=== PATIENT | male | born 1960 ===

== ENCOUNTER 2016-12-12 17:14 | Inpatient (IN) | payer MEDICAID ==
[2016-12-12 17:14] VITALS: BMI 30.7
--- NOTE | 2016-12-12 17:58 | ED PDOC ---
HPI:STROKE - Historian Historian: Patient (acute onset of blurred vision that resolves in minutes and difficulty with speech. h/o CVA in the past. no motor weakness that's new noted. ) NIHSS Stroke Scale - Date/Time Evaluation Performed When Was NIHSS Performed: Baseline - How Severe is the Stroke Level of Consciousness: 0=Alert LOC to Questions: 0=Both comments correct LOC to commands: 0=Obeys both correctly Best Gaze: 0=Normal Visual: 0=No visual loss Facial: 0=Normal Motor Arm - Left: 0=No drift Motor Arm - Right: 0=No drift Motor Leg - Left: 0=No drift Motor Leg - Right: 0=No drift Limb Ataxia: 0=Absent Sensory: 0=Normal Best Language: 1=Mild to moderate aphasia Dysarthia: 1=Mild to moderate slurring Extinction & Inattention (Neglect): 0=Normal, no object Score: 2 rTPA Inclusion/Exclusion - Refusal of Treatment Patient Refused Treatment: No - Inclusion Criteria for Altepase Patient is 18 years or Older: Yes The Clinical Diagnosis of Ischemic Stroke That is Causing a Potentially Disabling Neurological Deficit: No Time of Onset is Well Established to be Less Than 270 Minute Before Treatment Would Begin: No Risk/Benefit Discussed With Patient/Family Member Present: Yes - Exclusion Criteria for Altepase Uncontrolled Hypertension at Time of Treatment (Systolic BP above 185 or Diastolic BP above 110 mmHg): No Active Internal Bleeding: No Known Bleeding Diathesis Including but Not Limited to: Platelets Below 100,000/ mm,PTT Above 40 sec After Heparin Use, Current Use of Oral Anitcoagulant With INR Greater Than 1.7 or PT Greater Than 15 secs: No Evidence of an Intracranial Hemorrhage: No Evidence of Major Acute Infarct With Signs Greater Than 1/3 MCA Territory: No Suspicion of Subarachnoid Hemorrhage on Pretreatment Evaluation Even if CT Head Negative For Hemorrhage: No - Warning to TPA With Conditions Following Conditions Weighed Against Anticipated Benefit: Yes Condition: Stroke Serevity Too Mild Past Medical History Reviewed: Historical Data, Nursing Documentation, Vital Signs Vital Signs: Last Vital Signs Temp 98.1 F 12/12/16 17:20 Pulse 100 H 12/12/16 17:20 Resp 17 12/12/16 17:20 BP 140/88 12/12/16 17:20 Pulse Ox 100 12/12/16 17:20 - Medical History PMH: Atrial Fibrillation (pt had been on coumadin but recently switched to zarelta), Cardia Arrhythmia, CHF, HTN Denies: Chronic Kidney Disease - Surgical History Surgical History: Cholecystectomy Denies: Pacemaker - Family History Family History: States: No Known Family Hx - Living Arrangements Living Arrangements: With Family - Social History Current smoker - smoking cessation education provided: No - Home Medications Home Medications: Ambulatory Orders Medication Instructions Recorded Famotidine [Famotidine] 20 mg PO DAILY 10/25/13 Warfarin [Coumadin] 2.5 mg PO DAILY 03/13/14 Furosemide [Furosemide] 20 mg PO DAILY 08/02/14 Aspirin [Aspirin Chewable] 81 mg PO DAILY 09/03/16 Carvedilol [Coreg] 12.5 mg PO BID 09/03/16 Lisinopril [Zestril] 10 mg PO DAILY 09/03/16 Digoxin [Lanoxin] 0.125 mg PO 10/27/16 - Allergies Allergies/Adverse Reactions: Allergies Allergy/AdvReac Type Severity Reaction Status Date / Time No Known Allergies Allergy Verified 10/27/16 10:32 Review of Systems ROS Statement: Except As Marked, All Systems Reviewed And Found Negative Neurological: Positive for: Change in Speech, Other (transiently blurred vision) Physical Exam - Reviewed Nursing Documentation Reviewed: Yes Vital Signs Reviewed: Yes - Physical Exam Appears: Positive for: Well, Non-toxic, No Acute Distress Head Exam: Positive for: ATRAUMATIC, NORMAL INSPECTION, NORMOCEPHALIC Skin: Positive for: Normal Color, Warm, DRY Eye Exam: Positive for: EOMI, Normal appearance, PERRL ENT: Positive for: Normal ENT Inspection Neck: Positive for: Normal, Painless ROM Cardiovascular/Chest: Positive for: Regular Rate, Rhythm Respiratory: Positive for: CNT, Normal Breath Sounds Gastrointestinal/Abdominal: Positive for: Normal Exam, Bowel Sounds, Soft Back: Positive for: Normal Inspection Extremity: Positive for: Normal ROM Neurologic/Psych: Positive for: Alert, network architect manager II-XII, Oriented, Motor/Sensory Deficits, Mood/Affect, Cerebellar Tests, Aphasia (mild). Negative for: Facial Droop - ECG O2 Sat by Pulse Oximetry: 100 - Radiology X-Ray: Read By Radiologist - Critical Care Total Time (In Min): 30 Medical Decision Making Medical Decision Making: case d/w Dr. Morales. Admit for workup. Disposition - Clinical Impression Clinical Impression: Blurred vision, bilateral, Dysarthria, TIA (transient ischemic attack), Stroke - Patient ED Disposition Is Patient to be Admitted: Yes Doctor Will See Patient In The: Hospital Counseled Patient/Family Regarding: Diagnosis - Disposition Disposition: Transfer of Care Disposition Time: 18:09 Condition: GUARDED - Pt Status Changed To: Hospital Disposition Of: Inpatient - Admit Certification Admit to Inpatient:: After my assessment, the patient will require hospitalization for at least two midnights. This is because of the severity of symptoms shown, intensity of services needed, and/or the medical risk in this patient being treated as an outpatient. - POA Present On Arrival: None
--- NOTE | 2016-12-12 17:58 | CT ---
PROCEDURE: CT scan brain 12/12/2016 HISTORY: blurred vision, mild slurred speech COMPARISON: No prior study available comparison. TECHNIQUE: Axial computed tomography images were obtained through the head/brain without intravenous contrast. Radiation dose: Total exam DLP = 794.87 mGy-cm. This CT exam was performed using one or more of the following dose reduction techniques: Automated exposure control, adjustment of the mA and/or kV according to patient size, and/or use of iterative reconstruction technique. FINDINGS: HEMORRHAGE: No acute parenchymal, subarachnoid nor extra-axial hemorrhage. BRAIN: Vague area of low attenuation right anterior superior basal ganglia consistent with infarct in this location though age-indeterminate ; possibility of an acute infarct in this location not excluded. The possibility of an acute component infarct however underlying acute infarct cannot be completely excluded Chronic appearing infarct in the left posterior diaz radiata extending superiorly into left inferior centrum semiovale. This infarct appears chronic though not appreciated on prior exam. In addition, there is a chronic appearing infarct in the left frontal subcortical white matter that appears to extend into the anterior superior left basal ganglia which was partially visible on the prior study. . This may have represented an acute or subacute infarct on the prior exam Mild generalized volume loss VENTRICLES: No obstructive hydrocephalus CALVARIUM: No acute calvarial fractures PARANASAL SINUSES: Mild to moderate mucosal thickening within the ethmoid air complex extending superiorly into the frontal sinus. There is also minor mucosal thickening sphenoid sinus. MASTOID AIR CELLS: Unremarkable as visualized. No inflammatory changes. OTHER FINDINGS: None. IMPRESSION: No acute intracranial hemorrhage. Chronic on infarct left posterior coronal radiata extending superior to the left centrum semiovale. There is also chronic infarct in the left left frontal subcortical white matter which was partially visible on the prior exam. This could have represented an acute or subacute infarct on that prior study. There is a 3rd small vague and elliptical shaped area low attenuation right anterior superior basal ganglia that most likely represents age-indeterminate infarct. Acute infarct in this location not excluded. Consider followup emergent MRI at patient is currently within a treatment window for the tPA therapy. . Note that these findings were discussed with Dr. Fox at approximately 5:50 p.m. with written down and read back verification. Mild generalized volume loss. Cyst See above discussion for additional findings and details.
[2016-12-12 18:04] LABS: BASO % 0.7 % (0.0-2.0); EOS # 0.5 K/uL (0.0-0.7); EOS % 6.5 % (0.0-4.0); HEMATOCRIT 50.7 % (35.0-51.0); LYMPH # 2.4 K/uL (1.0-4.3); LYMPH % 32.9 % (20.0-40.0); MEAN CELL VOLUME 92.7 fl (80.0-94.0); MEAN CORPUSCULAR HGB CONC 33.5 g/dL (33.0-37.0); MONO # 0.5 K/uL (0.0-0.8); MONO % 6.9 % (0.0-10.0); NRBC % 0.2 % (0.0-0.0); RED CELL DISTRIBUTION WIDTH 13.3 % (11.5-14.5); WHITE BLOOD COUNT 7.5 K/uL (4.8-10.8)
[2016-12-12 18:21] LABS: ALB/GLOB RATIO 1.3 (1.0-2.1); ALKALINE PHOSPHATASE 69 U/L (38-126); ALT/SGPT 53 U/L (21-72); AST/SGOT 34 U/L (17-59); BILIRUBIN,TOTAL 0.5 mg/dl (0.2-1.3); BLOOD UREA NITROGEN 15 mg/dl (9-20); CALCIUM 8.8 mg/dL (8.4-10.2); CARBON DIOXIDE 27 mmol/L (22-30); CHLORIDE 105 mmol/L (98-107); CHOLESTEROL 109 mg/dL (0-199); GFR AFRICAN-AMERICAN > 60; GLUCOSE,RANDOM 98 mg/dL (75-110); POTASSIUM 3.9 MMOL/L (3.6-5.0); SODIUM 143 mmol/l (132-148); TOTAL PROTEIN 7.8 G/DL (6.3-8.2)
--- NOTE | 2016-12-12 18:28 | CP.PCM.HP ---
History of Present Illness - History of Present Illness History of Present Illness: CC:acute diplopia, mild dysarthria and aphasia x a few minutes 56 y/o M with Hx of CVA 2014, A fib, HTN, CHF, dilated cardiomyopathy ( EF 10-15 % on last ECHO 10/17, s/p AICD placement 2014), Polycythemia Vera presenting with diplopia and mild dysarthria and aphasia which started at 4 pm as per patient, lasted for a few minutes and resolved on its own. Associated with some dizziness. No chest pain, sob, cough, focal weakness or numbness, no LOC, no incontinence. PMH: Polycythemia Vera, CVA 07/17, A fib,HTN, CHF, dilated cardiomyopathy ( EF 10-15% on last ECHO 10/17, s/p AICD placement 2014) PSH: AICD 2014, cardiac cath 2013, cholecystectomy Allergies: NKDA Meds: per ECW Taking Aspir-81 81 MG Tablet Delayed Release Taking Atorvastatin Calcium 40 MG Tablet Taking Digoxin 125 MCG Tablet Continue Lisinopril 10 MG Tablet Continue Carvedilol 12.5 MG Tablet Continue Furosemide 20 MG Tablet Continue Warfarin Sodium 2.5 MG Tablet PMD: Dr Tse Cardio: Dr Delgadillo Heme/Onc: Dr Silverman ED course: NIHSS score 2 code stroke neuro consulted ct head w/o contrast: no acute hemorrhage cbc,cmp, lipids, coags, troponin x1 EKG, CXR Present on Admission - Present on Admission Any Indicators Present on Admission: No Review of Systems - Review of Systems Review of Systems: see hpi Past Patient History - Infectious Disease Hx of Infectious Diseases: None - Past Social History Smoking Status: Never Smoked - CARDIAC Hx Atrial Fibrillation: Yes (pt had been on coumadin but recently switched to zarelta) Hx Cardia Arrhythmia: Yes Hx Congestive Heart Failure: Yes Hx Hypertension: Yes Hx Pacemaker: No - NEUROLOGICAL HX Cerebrovascular Accident: Yes (no residual weakness) Hx Paralysis: No - RENAL Hx Chronic Kidney Disease: No - ENDOCRINE/METABOLIC Hx Endocrine Disorders: No - HEMATOLOGICAL/ONCOLOGICAL Hx Blood Transfusions: No Hx Blood Transfusion Reaction: No - INTEGUMENTARY Hx Dermatological Problems: No - MUSCULOSKELETAL/RHEUMATOLOGICAL Hx Musculoskeletal Disorders: No - GASTROINTESTINAL Hx Gastrointestinal Disorders: No - GENITOURINARY/GYNECOLOGICAL Hx Genitourinary Disorders: No - PSYCHIATRIC Hx Psychophysiologic Disorder: No - SURGICAL HISTORY Hx Cholecystectomy: Yes - ANESTHESIA Hx Anesthesia Reactions: No Hx Malignant Hyperthermia: No Meds Allergies/Adverse Reactions: Allergies Allergy/AdvReac Type Severity Reaction Status Date / Time No Known Allergies Allergy Verified 10/27/16 10:32 Physical Exam - Constitutional Appears: Non-toxic, No Acute Distress - Head Exam Head Exam: ATRAUMATIC - Eye Exam Eye Exam: EOMI Pupil Exam: PERRL - ENT Exam ENT Exam: Mucous Membranes Moist - Neck Exam Neck exam: Positive for: Full Rom. Negative for: Tenderness - Respiratory Exam Respiratory Exam: Clear to Auscultation Bilateral - Cardiovascular Exam Cardiovascular Exam: +S1, +S2 - GI/Abdominal Exam GI & Abdominal Exam: Normal Bowel Sounds, Soft. absent: Tenderness - Extremities Exam Extremities exam: Positive for: pedal pulses present. Negative for: calf tenderness, pedal edema - Neurological Exam Neurological exam: Alert, CN II-XII Intact, Oriented x3 - Expanded Neurological Exam Expanded Patient oriented to: person, place, time Cranial nerves: EOM's Intact: Normal, Facial Sensation: Normal, Nystagmus: Normal, Tongue Deviation: Normal Cerebellar Function: Finger to Nose: Normal, Romberg: Normal Neuro motor strength exam: Left Upper Extremity: 5, Right Upper Extremity: 5, Left Lower Extremity: 5, Right Lower Extremity: 5 - Psychiatric Exam Psychiatric exam: Normal Affect, Normal Mood Results - Vital Signs Recent Vital Signs: Last Vital Signs Temp 98.1 F 12/12/16 17:20 Pulse 100 H 12/12/16 17:20 Resp 17 12/12/16 17:20 BP 140/88 12/12/16 17:20 Pulse Ox 100 12/12/16 18:09 - Labs Result Diagrams: 12/12/16 17:50 12/12/16 17:50 Labs: Laboratory Results - last 24 hr 12/12/16 12/12/16 17:50 17:50 WBC 7.5 RBC 5.47 Hgb 17.0 Hct 50.7 MCV 92.7 MCH 31.0 MCHC 33.5 RDW 13.3 Plt Count 161 MPV 10.0 Neut % (Auto) 53.0 Lymph % (Auto) 32.9 Tyler % (Auto) 6.9 Eos % (Auto) 6.5 H Baso % (Auto) 0.7 Neut # 4.0 Lymph # 2.4 Tyler # 0.5 Eos # 0.5 Baso # 0.0 Sodium 143 Potassium 3.9 Chloride 105 Carbon Dioxide 27 Anion Gap 14 BUN 15 Creatinine 0.8 Est GFR ( Amer) > 60 Est GFR (Non-Af Amer) > 60 Random Glucose 98 Calcium 8.8 Total Bilirubin 0.5 AST 34 ALT 53 Alkaline Phosphatase 69 Total Protein 7.8 Albumin 4.4 Globulin 3.4 Albumin/Globulin Ratio 1.3 Triglycerides 240 H D Cholesterol 109 HDL Cholesterol 35 Assessment & Plan - Assessment and Plan (Free Text) Plan: 56 y/o M with Hx of CVA 2014, A fib, HTN, CHF, dilated cardiomyopathy ( EF 10-15 % on last ECHO 10/17, s/p AICD placement 2014), Polycythemia Vera presenting with diplopia and mild dysarthria and aphasia which started at 4 pm as per patient, lasted for a few minutes and resolved on its own. Diplopia w/ mild dysarthia resolved upon coming to the ED, poss 2/2 TIA ED course: NIHSS score 2 code stroke neuro consulted: recommend MRA, MRI but patient has AICD placed ct head w/o contrast: no acute hemorrhage swallow screen passed cbc,cmp, lipids, coags, troponin x1 EKG, CXR admit to telemetry neurochecks Q4 cardiac monitoring BP controlled: c/w lisinopril c/w lipitor 40 mg daily continue with home med warfarin since no acute hemorrhage on CT labs in AM await neuro recommendations since we cannot perform MRI/MRA due to AICD PT/OT eval and treat Afib c/w warfarin 2.5mg DCM AICD placed EF 10-15% with severe global hypokinesia of ventricle on last ECHO 10/17 c/w lasix daily, BENITA, BB Polycythemia Vera Hgb [address] Silverman as outpatient, no medical intervention for now as per patient PPx DVT - anticoagulated with warfarin for a fib Diet HH
--- NOTE | 2016-12-12 18:28 | RAD ---
HISTORY: code stroke COMPARISON: Comparison chest 08/02/2014 FINDINGS: LUNGS: No active pulmonary disease. PLEURA: No significant pleural effusion identified, no pneumothorax apparent. CARDIOVASCULAR: Cardiomegaly. Interval placement bipolar pacemaker/defibrillator. OSSEOUS STRUCTURES: No significant abnormalities. VISUALIZED UPPER ABDOMEN: Normal. OTHER FINDINGS: None. IMPRESSION: No acute consolidation. Cardiomegaly. Interval placement bipolar pacemaker/defibrillator.
[2016-12-12 18:52] LABS: PARTIAL THROMBOPLASTIN TIME 36.4 SECONDS (23.3-32.5)
[2016-12-13 07:58] LABS: HEMATOCRIT 50.5 % (35.0-51.0); MEAN CELL VOLUME 93.7 fl (80.0-94.0); MEAN CORPUSCULAR HEMOGLOBIN 30.9 pg (27.0-31.0); RED CELL DISTRIBUTION WIDTH 13.6 % (11.5-14.5); WHITE BLOOD COUNT 7.3 K/uL (4.8-10.8)
[2016-12-13 08:26] LABS: ALB/GLOB RATIO 1.2 (1.0-2.1); ALKALINE PHOSPHATASE 68 U/L (38-126); ALT/SGPT 48 U/L (21-72); AST/SGOT 49 U/L (17-59); BILIRUBIN,TOTAL 0.8 mg/dl (0.2-1.3); BLOOD UREA NITROGEN 17 mg/dl (9-20); CALCIUM 8.8 mg/dL (8.4-10.2); CARBON DIOXIDE 28 mmol/L (22-30); CHLORIDE 106 mmol/L (98-107); GFR AFRICAN-AMERICAN > 60; GLUCOSE,RANDOM 103 mg/dL (75-110); POTASSIUM 4.8 MMOL/L (3.6-5.0); SODIUM 142 mmol/l (132-148)
[2016-12-13] MEDS: Digoxin 125 mcg (0.125 mg) Tab PO SCH (08:49)
[2016-12-13 08:50] VITALS: PULSE 71
--- NOTE | 2016-12-13 10:30 | CP.PCM.CON ---
History of Present Illness - History of Present Illness History of Present Illness: Full Note Dictated. ?? TIA/?? fresh cerebral embolism Congestive cardiomyopathy Chr A Fib S/P AICD Implant Therapeutically anticoagulated Stable from cardiac point of view. Past Patient History - Infectious Disease Hx of Infectious Diseases: None - Past Medical History & Family History Past Medical History?: Yes - Past Social History Smoking Status: Never Smoked - CARDIAC Hx Cardiac Disorders: Yes Hx Atrial Fibrillation: Yes Hx Cardia Arrhythmia: Yes Hx Congestive Heart Failure: Yes Hx Hypertension: Yes Hx Pacemaker: Yes Other/Comment: Dilated cardiomyopathy - PULMONARY Hx Respiratory Disorders: No - NEUROLOGICAL Hx Neurological Disorder: Yes HX Cerebrovascular Accident: Yes (no residual weakness) - HEENT Hx HEENT Problems: No - RENAL Hx Chronic Kidney Disease: No - ENDOCRINE/METABOLIC Hx Endocrine Disorders: No - HEMATOLOGICAL/ONCOLOGICAL Hx Blood Disorders: Yes Other/Comment: Polycythemia - INTEGUMENTARY Hx Dermatological Problems: No - MUSCULOSKELETAL/RHEUMATOLOGICAL Hx Musculoskeletal Disorders: No Hx Falls: No - GASTROINTESTINAL Hx Gastrointestinal Disorders: No - GENITOURINARY/GYNECOLOGICAL Hx Genitourinary Disorders: No - PSYCHIATRIC Hx Psychophysiologic Disorder: No Hx Substance Use: No - SURGICAL HISTORY Hx Surgeries: Yes Hx Cholecystectomy: Yes Other/Comment: Pacemaker Insertion - ANESTHESIA Hx Anesthesia: Yes Hx Anesthesia Reactions: No Hx Malignant Hyperthermia: No Meds Allergies/Adverse Reactions: Allergies Allergy/AdvReac Type Severity Reaction Status Date / Time No Known Allergies Allergy Verified 10/27/16 10:32 - Medications Medications: Current Medications Aspirin (Aspirin Chewable) 81 mg PO DAILY [facility] Last Admin: 12/13/16 08:49 Dose: 81 mg Atorvastatin Calcium (Lipitor) 40 mg PO DAILY [facility] Last Admin: 12/13/16 08:48 Dose: 40 mg Carvedilol (Coreg) 12.5 mg PO BID [facility] Last Admin: 12/13/16 08:50 Dose: 12.5 mg Digoxin (Lanoxin) 0.125 mg PO DAILY [facility] Last Admin: 12/13/16 08:49 Dose: 0.125 mg Furosemide (Lasix) 10 mg PO DAILY [facility] Last Admin: 12/13/16 08:49 Dose: 10 mg Lisinopril (Zestril) 10 mg PO DAILY [facility] Last Admin: 12/13/16 08:48 Dose: 10 mg Ondansetron HCl (Zofran Inj) 4 mg IVP Q6 PRN PRN Reason: Nausea/Vomiting Results - Vital Signs Recent Vital Signs: Last Vital Signs Temp 97.4 F L 12/13/16 08:23 Pulse 71 12/13/16 08:50 Resp 20 12/13/16 08:23 BP 131/87 12/13/16 08:50 Pulse Ox 99 12/13/16 08:23 - Labs Result Diagrams: 12/13/16 06:00 12/13/16 06:00 Labs: Laboratory Results - last 24 hr 12/13/16 12/13/16 06:00 06:00 WBC 7.3 RBC 5.39 Hgb 16.7 Hct 50.5 MCV 93.7 MCH 30.9 MCHC 33.0 RDW 13.6 Plt Count 152 Sodium 142 Potassium 4.8 Chloride 106 Carbon Dioxide 28 Anion Gap 13 BUN 17 Creatinine 0.9 Est GFR ( Amer) > 60 Est GFR (Non-Af Amer) > 60 Random Glucose 103 Calcium 8.8 Total Bilirubin 0.8 AST 49 ALT 48 Alkaline Phosphatase 68 Total Protein 7.0 Albumin 3.8 Globulin 3.2 Albumin/Globulin Ratio 1.2
--- NOTE | 2016-12-13 11:34 | CARD ---
APPROVED REPORT EKG Measurement Heart [id number] <Conclusion> Ventricular-paced rhythm Abnormal ECG
--- NOTE | 2016-12-13 11:38 | CP.PCM.PN ---
Subjective - Date & Time of Evaluation Date of Evaluation: 12/13/16 Time of Evaluation: 08:45 - Subjective Subjective: Pt is being following up for Code stroke. No overnight event: afebrile Pt is walking around in his room, NAD, normal gait. Pt states his symptoms of gait imbalance, dysarthria, and aphasia has resolved. Pt reports his baseline neurological freitas. Denies new focal neurological deficits, dropping of face, extremity numbness/tingling. Denies fever, nausea, chills, sob, palpitation, headache. Objective - Vital Signs/Intake and Output Vital Signs (last 24 hours): Temp Pulse Resp BP Pulse Ox 97.4 F L 71 20 131/87 99 12/13/16 09:00 12/13/16 09:00 12/13/16 09:00 12/13/16 09:00 12/13/16 09:00 - Medications Medications: Current Medications Aspirin (Aspirin Chewable) 81 mg PO DAILY [facility] Last Admin: 12/13/16 08:49 Dose: 81 mg Atorvastatin Calcium (Lipitor) 40 mg PO DAILY [facility] Last Admin: 12/13/16 08:48 Dose: 40 mg Carvedilol (Coreg) 12.5 mg PO BID [facility] Last Admin: 12/13/16 08:50 Dose: 12.5 mg Digoxin (Lanoxin) 0.125 mg PO DAILY [facility] Last Admin: 12/13/16 08:49 Dose: 0.125 mg Furosemide (Lasix) 10 mg PO DAILY [facility] Last Admin: 12/13/16 08:49 Dose: 10 mg Lisinopril (Zestril) 10 mg PO DAILY [facility] Last Admin: 12/13/16 08:48 Dose: 10 mg Ondansetron HCl (Zofran Inj) 4 mg IVP Q6 PRN PRN Reason: Nausea/Vomiting - Labs Labs: 12/13/16 06:00 12/13/16 06:00 PT 24.6 SECONDS (9.6-11.2) H 12/12/16 17:50 INR 2.37 (0.92-1.08) H 12/12/16 17:50 APTT 36.4 SECONDS (23.3-32.5) H 12/12/16 17:50 - Constitutional Appears: Non-toxic, No Acute Distress - Head Exam Head Exam: ATRAUMATIC - Eye Exam Eye Exam: EOMI, Normal appearance - ENT Exam ENT Exam: Mucous Membranes Moist - Neck Exam Neck Exam: Full ROM - Respiratory Exam Respiratory Exam: Clear to Ausculation Bilateral - Cardiovascular Exam Cardiovascular Exam: REGULAR RHYTHM, +S1, +S2. absent: Murmur - GI/Abdominal Exam GI & Abdominal Exam: Soft, Normal Bowel Sounds. absent: Distended, Tenderness - Extremities Exam Extremities Exam: Full ROM, Normal Capillary Refill. absent: Calf Tenderness, Pedal Edema, Tenderness - Back Exam Back Exam: Full ROM, NORMAL INSPECTION. absent: CVA tenderness (L), CVA tenderness (R) - Neurological Exam Neurological Exam: Alert, Awake, CN II-XII Intact, Normal Gait, Oriented x3 Neuro motor strength exam: Left Upper Extremity: 4, Right Upper Extremity: 4 - Psychiatric Exam Psychiatric exam: Anxious, Normal Affect, Normal Mood - Skin Skin Exam: Normal Color, Warm Assessment and Plan - Assessment and Plan (Free Text) Assessment: 56 y/o M with Hx of CVA 2014, A fib, HTN, CHF, dilated cardiomyopathy ( EF 10-15 % on last ECHO 10/17, s/p AICD placement 2014), Polycythemia Vera presenting with diplopia and mild dysarthria and aphasia which started at 4 pm as per patient, lasted for a few minutes and resolved on its own admitted for Code Stroke. Diplopia w/ mild dysarthia -resolved, most likely TIA -Neurology consult appreciated, Dr. Morales due to AICD MRA, MRI held, recommend CTa of head and neck -Code stroke -NIHSS score 2, swallow screen passed -ct head w/o contrast: no acute hemorrhage - cxr: no acute disease -continue with aspirin, lipitor, warfarin 2.5mg -awaiting PT/OT eval and treat HTN: BP controlled c/w lisinopril c/w lipitor 40 mg daily Afib -ACID intact -ekg in ED: ventricular pace -c/w warfarin 2.5mg -f/u repeat INR CHF EF 10-15% with severe global hypokinesia of ventricle on last ECHO 10/17 c/w lasix daily, BENITA, BB Polycythemia Vera -awaiting heme/onc consult, Dr. Silverman -history of phlebotomy -H:H 17:50 PPx DVT - anticoagulated with warfarin for a fib Diet HH
--- NOTE | 2016-12-13 14:19 | CON ---
DATE: 12/13/2016 He is hospitalized under the resident's care in room 417, bed 1. HISTORY OF PRESENT ILLNESS: This 56-year-old man is well known to me over the last couple of years. He has congestive cardiomyopathy with chronic atrial fibrillation for which he takes carvedilol, lis inopril, and a diuretic. He has been orally anticoagulated using warfarin and gets his INR checked r egularly. Because of a severely depressed left ventricular systolic function, he has had an AICD imp lanted more than 2 years back and gets regular checkups by his account resolution specialist. Following initia tion of heart failure treatment, the patient has had exceedingly improved effort tolerance and is abl e to walk freely 10-12 blocks without any difficulty and can climb a flight of stairs and has not bee n hospitalized with heart failure symptoms. He came to the Emergency Room after experiencing a perio d of lightheadedness along with mild slurring of speech which lasted for a very short period of time and promptly disappeared. PHYSICAL EXAMINATION: GENERAL: Shows a middle-aged pleasant man, alert, awake, coherent. Able to express himself quite wel l. Has normal speech. Is able to get in and out of bed unassisted. VITAL SIGNS: Afebrile, heart rate of 68 beats per minute and regular, his blood pressure was 120/80 mmHg. NECK: His jugular venous pressure was not elevated. EXTREMITIES: There was no edema of his lower extremities. The pedal pulses were well felt. There w ere no carotid bruits. HEART: The apex was in the 5th space. The first and second heart sounds were normal. There was no murmur, no gallop. LUNGS: No rales. ABDOMEN: Soft. Liver and spleen were not palpable. In the Emergency Room, his electrocardiogram showed evidence of atrial fibrillation with a VVI paced rhythm. LABORATORY DATA: Show a hemoglobin and hematocrit of 16.7 g and 50.5% respectively. His WBC count a nd platelet count were within normal limits. His BUN and creatinine were 15 and 0.8 mg percent. His troponin was within normal range and his INR was 2.3. IMPRESSION AND PLAN: At this time is transient ischemic episode in a patient with chronic atrial fib rillation, history of congestive cardiomyopathy, congestive heart failure, which is left ventricular systolic and chronic with status post automatic implantable cardioverter-defibrillator implant. The patient does have an elevated BUN and elevated hemoglobin and hematocrit and given his history of con gestive cardiac failure, would probably benefit by having a phlebotomy. He is stable from cardiovasc ular point of view. I have discussed his case with the residents. His present schedule of medication s is appropriate. Ad Delgadillo MD cc: 23 TT: 12/13/2016 14:18:55 Confirmation # [id number] Dictation # [id number] rn
--- NOTE | 2016-12-13 16:17 | CP.PCM.CON ---
History of Present Illness - History of Present Illness History of Present Illness: Mr. Dang is a 56-year-old man with a past medical history of left MCA region ischemic stroke in 2014, A fib, HTN, CHF, dilated cardiomyopathy (EF 10-15% on last ECHO 10/17, s/p AICD placement 2015), Polycythemia Vera, who presented to the ED after an episode of vertigo and visual changes that lasted for several minutes and resolved completely. He states that he has had an additional amount of stress at home recently and he has not been feeling well. Otherwise, he does not have any residual symptoms of visual changes and is not currently vertiginous. He has slight right side weakness from the previous stroke, but he states that he recovered about 95% of his function. He denied headache, nausea, slurred speech, word-finding difficulty, other weakness, sensory changes or difficulty with ambulation. He denied other associated symptoms. Review of Systems - Review of Systems All systems: reviewed and no additional remarkable complaints except Past Patient History - Infectious Disease Hx of Infectious Diseases: None - Past Medical History & Family History Past Medical History?: Yes - Past Social History Smoking Status: Never Smoked - CARDIAC Hx Cardiac Disorders: Yes Hx Atrial Fibrillation: Yes Hx Cardia Arrhythmia: Yes Hx Congestive Heart Failure: Yes Hx Hypertension: Yes Hx Pacemaker: Yes Other/Comment: Dilated cardiomyopathy - PULMONARY Hx Respiratory Disorders: No - NEUROLOGICAL Hx Neurological Disorder: Yes HX Cerebrovascular Accident: Yes (no residual weakness) - HEENT Hx HEENT Problems: No - RENAL Hx Chronic Kidney Disease: No - ENDOCRINE/METABOLIC Hx Endocrine Disorders: No - HEMATOLOGICAL/ONCOLOGICAL Hx Blood Disorders: Yes Other/Comment: Polycythemia - INTEGUMENTARY Hx Dermatological Problems: No - MUSCULOSKELETAL/RHEUMATOLOGICAL Hx Musculoskeletal Disorders: No Hx Falls: No - GASTROINTESTINAL Hx Gastrointestinal Disorders: No - GENITOURINARY/GYNECOLOGICAL Hx Genitourinary Disorders: No - PSYCHIATRIC Hx Psychophysiologic Disorder: No Hx Substance Use: No - SURGICAL HISTORY Hx Surgeries: Yes Hx Cholecystectomy: Yes Other/Comment: Pacemaker Insertion - ANESTHESIA Hx Anesthesia: Yes Hx Anesthesia Reactions: No Hx Malignant Hyperthermia: No Meds Allergies/Adverse Reactions: Allergies Allergy/AdvReac Type Severity Reaction Status Date / Time No Known Allergies Allergy Verified 10/27/16 10:32 - Medications Medications: Current Medications Aspirin (Aspirin Chewable) 81 mg PO DAILY [facility] Last Admin: 12/13/16 08:49 Dose: 81 mg Atorvastatin Calcium (Lipitor) 40 mg PO DAILY [facility] Last Admin: 12/13/16 08:48 Dose: 40 mg Carvedilol (Coreg) 12.5 mg PO BID [facility] Last Admin: 12/13/16 08:50 Dose: 12.5 mg Digoxin (Lanoxin) 0.125 mg PO DAILY [facility] Last Admin: 12/13/16 08:49 Dose: 0.125 mg Furosemide (Lasix) 10 mg PO DAILY [facility] Last Admin: 12/13/16 08:49 Dose: 10 mg Lisinopril (Zestril) 10 mg PO DAILY [facility] Last Admin: 12/13/16 08:48 Dose: 10 mg Ondansetron HCl (Zofran Inj) 4 mg IVP Q6 PRN PRN Reason: Nausea/Vomiting Physical Exam - Constitutional Appears: Well - Head Exam Head Exam: ATRAUMATIC, NORMAL INSPECTION, NORMOCEPHALIC - Eye Exam Eye Exam: EOMI, Normal appearance, PERRL Pupil Exam: NORMAL ACCOMODATION, PERRL - ENT Exam ENT Exam: Mucous Membranes Moist, Normal Exam - Neck Exam Neck exam: Positive for: Normal Inspection - Respiratory Exam Respiratory Exam: Clear to Auscultation Bilateral, NORMAL BREATHING PATTERN - Cardiovascular Exam Cardiovascular Exam: REGULAR RHYTHM, +S1, +S2 - GI/Abdominal Exam GI & Abdominal Exam: Normal Bowel Sounds, Soft. absent: Tenderness - Rectal Exam Rectal Exam: Deferred - Extremities Exam Extremities exam: Positive for: normal inspection - Back Exam Back exam: NORMAL INSPECTION - Neurological Exam Neurological exam: Alert, CN II-XII Intact, Normal Gait, Oriented x3, Reflexes Normal - Expanded Neurological Exam Expanded Cranial nerves: EOM's Intact: Normal, Facial Sensation: Normal, Nystagmus: Normal Cerebellar Function: Finger to Nose: Normal, Heel to Benites: Normal, Romberg: Normal Upper motor neuron: Babinski Sign: Normal Sensory exam: Lower Extremity 2 Point Discrimination: Normal, Lower Extremity Light Touch: Normal, Lower Extremity Pin Prick: Normal, Lower Extremity Temperature: Normal, Upper Extremity 2 Point Discrimination: Normal, Upper Extremity Light Touch: Normal, Upper Extremity Pin Prick: Normal, Upper Extremity Temperature: Normal Neuro motor strength exam: Left Upper Extremity: 5, Right Upper Extremity: 5, Left Lower Extremity: 5, Right Lower Extremity: 5 DTR: Achilles Tendon Left: 2+, Achilles Tendon Right: 2+, Bicep Left: 2+, Bicep Right: 2+, Brachioradialis Left: 2+, Brachioradialis Right: 2+, Patellar Left: 2 +, Patellar Right: 2+, Tricep Left: 2+, Tricep Right: 2+ - Psychiatric Exam Psychiatric exam: Normal Affect, Normal Mood - Skin Skin Exam: Dry, Intact, Normal Color, Warm Results - Vital Signs Recent Vital Signs: Last Vital Signs Temp 98.1 F 12/13/16 15:41 Pulse 71 12/13/16 15:41 Resp 20 12/13/16 15:41 BP 114/61 12/13/16 15:41 Pulse Ox 98 12/13/16 15:41 - Labs Result Diagrams: 12/13/16 06:00 12/13/16 06:00 Labs: Laboratory Results - last 24 hr 12/13/16 12/13/16 06:00 06:00 WBC 7.3 RBC 5.39 Hgb 16.7 Hct 50.5 MCV 93.7 MCH 30.9 MCHC 33.0 RDW 13.6 Plt Count 152 Sodium 142 Potassium 4.8 Chloride 106 Carbon Dioxide 28 Anion Gap 13 BUN 17 Creatinine 0.9 Est GFR ( Amer) > 60 Est GFR (Non-Af Amer) > 60 Random Glucose 103 Calcium 8.8 Total Bilirubin 0.8 AST 49 ALT 48 Alkaline Phosphatase 68 Total Protein 7.0 Albumin 3.8 Globulin 3.2 Albumin/Globulin Ratio 1.2 Assessment & Plan (1) TIA (transient ischemic attack) Assessment and Plan: The history and description of the symptoms may have been due to a posterior circulation TIA. The patient is not back to baseline. His AICD does not appear to be MRI compatible, so we will repeat the CT head and obtain a CTA of the head /neck to evaluate for vascular stenosis. An echocardiogram with bubble study is recommended to rule out a cardiac thrombus. Continue coumadin for an INR of 2-3, and continue aspirin 81 mg daily for secondary stroke prevention. The patient is already on lipitor and this will be continued. We discussed life- style modification and risk-factor management. He may need to be evaluated by PT/OT. Otherwise, if the results of the aforementioned tests are normal, then he may be discharged home on his current medications and may follow-up with outpatient neurology. Thank you very much for this consultation. Status: Acute Priority: High
--- NOTE | 2016-12-13 17:28 | CP.PCM.CON ---
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 The patient notes to increased stress for about 2 weeks which he thinks led to his vision showing the rooms moving up and down. He denies fevers and chills. He has no nausea and vomiting. He has no headache and notes his vision is back to normal. 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 Social history: Denies tobacco, alcohol, and illicit drug use. Allergies: NKA Review of systems: All remaining review of systems including HEENT, cardiovascular, respiratory, gastrointestinal, genitourinary, musculoskeletal, dermatologic, neurologic, and psychiatric are negative unless mentioned in the HPI. Past Patient History - Infectious Disease Hx of Infectious Diseases: None - Past Medical History & Family History Past Medical History?: Yes - Past Social History Smoking Status: Never Smoked - CARDIAC Hx Cardiac Disorders: Yes Hx Atrial Fibrillation: Yes Hx Cardia Arrhythmia: Yes Hx Congestive Heart Failure: Yes Hx Hypertension: Yes Hx Pacemaker: Yes Other/Comment: Dilated cardiomyopathy - PULMONARY Hx Respiratory Disorders: No - NEUROLOGICAL Hx Neurological Disorder: Yes HX Cerebrovascular Accident: Yes (no residual weakness) - HEENT Hx HEENT Problems: No - RENAL Hx Chronic Kidney Disease: No - ENDOCRINE/METABOLIC Hx Endocrine Disorders: No - HEMATOLOGICAL/ONCOLOGICAL Hx Blood Disorders: Yes Other/Comment: Polycythemia - INTEGUMENTARY Hx Dermatological Problems: No - MUSCULOSKELETAL/RHEUMATOLOGICAL Hx Musculoskeletal Disorders: No Hx Falls: No - GASTROINTESTINAL Hx Gastrointestinal Disorders: No - GENITOURINARY/GYNECOLOGICAL Hx Genitourinary Disorders: No - PSYCHIATRIC Hx Psychophysiologic Disorder: No Hx Substance Use: No - SURGICAL HISTORY Hx Surgeries: Yes Hx Cholecystectomy: Yes Other/Comment: Pacemaker Insertion - ANESTHESIA Hx Anesthesia: Yes Hx Anesthesia Reactions: No Hx Malignant Hyperthermia: No Meds Allergies/Adverse Reactions: Allergies Allergy/AdvReac Type Severity Reaction Status Date / Time No Known Allergies Allergy Verified 10/27/16 10:32 - Medications Medications: Current Medications Aspirin (Aspirin Chewable) 81 mg PO DAILY [facility] Last Admin: 12/13/16 08:49 Dose: 81 mg Atorvastatin Calcium (Lipitor) 40 mg PO DAILY [facility] Last Admin: 12/13/16 08:48 Dose: 40 mg Carvedilol (Coreg) 12.5 mg PO BID [facility] Last Admin: 12/13/16 16:21 Dose: 12.5 mg Digoxin (Lanoxin) 0.125 mg PO DAILY [facility] Last Admin: 12/13/16 08:49 Dose: 0.125 mg Furosemide (Lasix) 10 mg PO DAILY [facility] Last Admin: 12/13/16 08:49 Dose: 10 mg Lisinopril (Zestril) 10 mg PO DAILY [facility] Last Admin: 12/13/16 08:48 Dose: 10 mg Ondansetron HCl (Zofran Inj) 4 mg IVP Q6 PRN PRN Reason: Nausea/Vomiting Physical Exam - Head Exam Head Exam: ATRAUMATIC - Eye Exam Eye Exam: Normal appearance - ENT Exam ENT Exam: Mucous Membranes Dry - Respiratory Exam Respiratory Exam: NORMAL BREATHING PATTERN - Cardiovascular Exam Cardiovascular Exam: +S1, +S2 - GI/Abdominal Exam GI & Abdominal Exam: Normal Bowel Sounds - Extremities Exam Extremities exam: Positive for: normal inspection - Neurological Exam Neurological exam: Oriented x3 - Psychiatric Exam Psychiatric exam: Normal Affect, Normal Mood - Skin Skin Exam: Warm Results - Vital Signs Recent Vital Signs: Last Vital Signs Temp 98.1 F 12/13/16 15:41 Pulse 71 12/13/16 16:21 Resp 20 12/13/16 15:41 BP 114/61 12/13/16 16:21 Pulse Ox 98 12/13/16 15:41 - Labs Result Diagrams: 12/14/16 06:00 12/13/16 06:00 Labs: Laboratory Results - last 24 hr 12/13/16 12/13/16 06:00 06:00 WBC 7.3 RBC 5.39 Hgb 16.7 Hct 50.5 MCV 93.7 MCH 30.9 MCHC 33.0 RDW 13.6 Plt Count 152 Sodium 142 Potassium 4.8 Chloride 106 Carbon Dioxide 28 Anion Gap 13 BUN 17 Creatinine 0.9 Est GFR ( Amer) > 60 Est GFR (Non-Af Amer) > 60 Random Glucose 103 Calcium 8.8 Total Bilirubin 0.8 AST 49 ALT 48 Alkaline Phosphatase 68 Total Protein 7.0 Albumin 3.8 Globulin 3.2 Albumin/Globulin Ratio 1.2 Assessment & Plan (1) Secondary polycythemia Assessment and Plan: JAK2 negative repeat erythropoietin level outpatient phlebotomy Status: Acute (2) Coagulopathy Assessment and Plan: secondary to anticoagulation Thank you for this interesting consult. Status: Acute
[2016-12-14 08:29] LABS: MEAN CELL VOLUME 92.5 fl (80.0-94.0); MEAN CORPUSCULAR HGB CONC 33.6 g/dL (33.0-37.0); RED CELL DISTRIBUTION WIDTH 13.2 % (11.5-14.5); WHITE BLOOD COUNT 7.4 K/uL (4.8-10.8)
[2016-12-14 08:39] LABS: PARTIAL THROMBOPLASTIN TIME 32.4 SECONDS (23.3-32.5)
[2016-12-14] MEDS: Digoxin 125 mcg (0.125 mg) Tab PO SCH (09:20)
--- NOTE | 2016-12-14 10:01 | CP.PCM.PN ---
Subjective - Date & Time of Evaluation Date of Evaluation: 12/14/16 Time of Evaluation: 09:30 - Subjective Subjective: Pt is being following up for Code stroke. No overnight event: afebrile Pt is laying up in bed, NAD. Pt continue to states his symptoms of gait imbalance, dysarthria, and aphasia has resolved. Pt reports he is at his baseline neurological freitas. Denies new focal neurological deficits, dropping of face, extremity numbness/tingling. Denies fever, nausea, chills, sob, palpitation, headache. Objective - Vital Signs/Intake and Output Vital Signs (last 24 hours): Temp Pulse Resp BP Pulse Ox 97.7 F 71 19 130/83 99 12/14/16 04:50 12/14/16 09:21 12/14/16 04:50 12/14/16 09:21 12/14/16 04:50 - Medications Medications: Current Medications Aspirin (Aspirin Chewable) 81 mg PO DAILY [facility] Last Admin: 12/14/16 09:19 Dose: 81 mg Atorvastatin Calcium (Lipitor) 40 mg PO DAILY [facility] Last Admin: 12/14/16 09:21 Dose: 40 mg Carvedilol (Coreg) 12.5 mg PO BID [facility] Last Admin: 12/14/16 09:19 Dose: 12.5 mg Digoxin (Lanoxin) 0.125 mg PO DAILY [facility] Last Admin: 12/14/16 09:20 Dose: 0.125 mg Furosemide (Lasix) 10 mg PO DAILY [facility] Last Admin: 12/14/16 09:20 Dose: 10 mg Lisinopril (Zestril) 10 mg PO DAILY [facility] Last Admin: 12/14/16 09:21 Dose: 10 mg Ondansetron HCl (Zofran Inj) 4 mg IVP Q6 PRN PRN Reason: Nausea/Vomiting - Labs Labs: 12/14/16 06:00 12/13/16 06:00 PT 19.7 SECONDS (9.6-11.2) H 12/14/16 06:00 INR 1.89 (0.92-1.08) H 12/14/16 06:00 APTT 32.4 SECONDS (23.3-32.5) 12/14/16 06:00 - Additional Findings Additional findings: - Constitutional Appears: Non-toxic, No Acute Distress - Head Exam Head Exam: ATRAUMATIC - Eye Exam Eye Exam: EOMI, Normal appearance - ENT Exam ENT Exam: Mucous Membranes Moist - Neck Exam Neck Exam: Full ROM - Respiratory Exam Respiratory Exam: Clear to Ausculation Bilateral - Cardiovascular Exam Cardiovascular Exam: REGULAR RHYTHM, +S1, +S2. absent: Murmur - GI/Abdominal Exam GI & Abdominal Exam: Soft, Normal Bowel Sounds. absent: Distended, Tenderness - Extremities Exam Extremities Exam: Full ROM, Normal Capillary Refill. absent: Calf Tenderness, Pedal Edema, Tenderness - Back Exam Back Exam: Full ROM, NORMAL INSPECTION. absent: CVA tenderness (L), CVA tenderness (R) - Neurological Exam Neurological Exam: Alert, Awake, CN II-XII Intact, Normal Gait, Oriented x3 Neuro motor strength exam: Left Upper Extremity: 4, Right Upper Extremity: 4 - Psychiatric Exam Psychiatric exam: Anxious, Normal Affect, Normal Mood - Skin Skin Exam: Normal Color, Warm Assessment and Plan - Assessment and Plan (Free Text) Assessment: 56 y/o M with Hx of CVA 2014, A fib, HTN, CHF, dilated cardiomyopathy ( EF 10-15 % on last ECHO 10/17, s/p AICD placement 2014), Polycythemia Vera presenting with diplopia and mild dysarthria and aphasia which started at 4 pm as per patient, lasted for a few minutes and resolved on its own admitted for Code Stroke. Diplopia w/ mild dysarthia -resolved, most likely TIA -Neurology consult appreciated, Dr. Morales due to AICD MRA, MRI held, recommend CTa of head and neck pending repeat ct head, cta head and neck, if unremarkable stable to d/c and f/u outpt -Code stroke -NIHSS score 2, swallow screen passed -ct head w/o contrast: no acute hemorrhage -cxr: no acute disease -continue with aspirin, lipitor, warfarin 2.5mg -awaiting PT/OT eval, ct a head and neck, and repeat ct head HTN: BP controlled c/w lisinopril c/w lipitor 40 mg daily Afib -ACID intact -ekg in ED: ventricular pace -c/w warfarin 2.5mg -f/u repeat INR CHF EF 10-15% with severe global hypokinesia of ventricle on last ECHO 10/17 c/w lasix daily, BENITA, BB Polycythemia Vera -awaiting heme/onc consult, Dr. Silverman -history of phlebotomy -H:H 17:50 PPx DVT - anticoagulated with warfarin for a fib Diet HH
[2016-12-14] MEDS ORDERED: Sodium Chloride 0.9% 100 ML ONE (12:00)
[2016-12-14] MEDS ORDERED: Iodixanol 320 MG/ML 100 ML BOTTLE IV ONE (12:00)
--- NOTE | 2016-12-14 12:55 | CT ---
PROCEDURE: CT HEAD WITHOUT CONTRAST. HISTORY: code stroke COMPARISON: None available. TECHNIQUE: Axial computed tomography images were obtained through the head/brain without intravenous contrast. Radiation dose: Total exam DLP = 867 mGy-cm. This CT exam was performed using one or more of the following dose reduction techniques: Automated exposure control, adjustment of the mA and/or kV according to patient size, and/or use of iterative reconstruction technique. FINDINGS: HEMORRHAGE: No intracranial hemorrhage. BRAIN: No mass effect or edema. Mild chronic white matter ischemic disease. VENTRICLES: Unremarkable. No hydrocephalus. CALVARIUM: Unremarkable. PARANASAL SINUSES: Unremarkable as visualized. No significant inflammatory changes. MASTOID AIR CELLS: Unremarkable as visualized. No inflammatory changes. OTHER FINDINGS: None. IMPRESSION: Mild chronic white matter ischemic disease.
[2016-12-15] MEDS: Digoxin 125 mcg (0.125 mg) Tab PO SCH (08:39)
[2016-12-15 12:21] VITALS: PULSE 70
--- NOTE | 2016-12-15 13:36 | CT ---
PROCEDURE: CT Angiography of the neck with contrast HISTORY: code stroke, neurology recommendation COMPARISON: None available. TECHNIQUE: Contiguous axial images of the neck were obtained from the level of the skull-base to the superior mediastinum in the arteriographic phase of enhancement. Coronal and sagittal reformats or also generated. IV contrast dose: 100 cc of Visipaque Radiation Dose - DLP: 2303 mGy-cm This CT exam was performed using one or more of the following dose reduction techniques: Automated exposure control, adjustment of the mA and/or kV according to patient size, and/or use of iterative reconstruction technique. FINDINGS: RIGHT CAROTID ARTERIES: Common Carotid Artery: Normal. Carotid Bifurcation: Normal. Internal Carotid Artery:Normal. External Carotid Artery (proximal branches): Normal. LEFT CAROTID ARTERIES: Common Carotid Artery: Normal. Carotid Bifurcation: Normal. Internal Carotid Artery:Normal. External Carotid Artery (proximal branches): Normal. VERTEBRAL ARTERIES: Right Vertebral Artery: Normal. Left Vertebral Artery: Normal. OTHER FINDINGS: None. IMPRESSION: Normal CT Angiography of the neck. PROCEDURE: CT Angiography of the Brain. HISTORY: code stroke, neurology recommendation COMPARISON: None available. TECHNIQUE: CT angiography of the intracranial arteries was performed. Coronal and sagittal maximum intensity projection reformated images were generated. This CT exam was performed using one or more of the following dose reduction techniques: Automated exposure control, adjustment of the mA and/or kV according to patient size, and/or use of iterative reconstruction technique. FINDINGS: INTERNAL CEREBRAL ARTERIES: Unremarkable. The skull base, petrous, cavernous and supraclinoid segments are bilaterally widely patient. ANTERIOR CEREBRAL ARTERIES: Unremarkable. A1 and A2 segments are widely patent. Smaller distal branches unremarkable, as visualized. MIDDLE CEREBRAL ARTERIES: Unremarkable. M1 and M2 segments are widely patent. Perisylvian branches grossly symmetric. POSTERIOR CIRCULATION: Basilar Artery: Unremarkable. Distal Vertebral Arteries: Unremarkable. Posterior Cerebral Arteries: Unremarkable. Posterior Inferior Cerebellar Arteries: Unremarkable. ANEURYSM/ VASCULAR MALFORMATIONS: None. OTHER FINDINGS: The report concurs with the preliminary [facility] report IMPRESSION: Unremarkable CT Angiography of the Brain.
--- NOTE | 2016-12-15 15:15 | CP.PCM.DIS ---
Provider - Provider Date of Admission: 12/12/16 18:09 Attending physician: Tanya Nunez MD Primary care physician: Dr Kaden Tse Consults: Cardiology Dr Romano Neurology Dr Morales Time Spent in preparation of Discharge (in minutes): 30 Diagnosis - Discharge Diagnosis (1) TIA (transient ischemic attack) Status: Resolved Priority: High Comment: CT head/CT angiogram no acute changes. Patient asymptomatic (2) Congestive heart failure (CHF) Status: Chronic Comment: Stable. Evaluated by Cardiology. Cont home meds. F/U as outpatient Hospital Course - Lab Results Lab Results: Most Recent Lab Values WBC 7.4 K/uL (4.8-10.8) 12/14/16 06:00 RBC 5.51 Mil/uL (4.40-5.90) 12/14/16 06:00 Hgb 17.1 g/dL (12.0-18.0) 12/14/16 06:00 Hct 51.0 % (35.0-51.0) 12/14/16 06:00 MCV 92.5 fl (80.0-94.0) 12/14/16 06:00 MCH 31.0 pg (27.0-31.0) 12/14/16 06:00 MCHC 33.6 g/dL (33.0-37.0) 12/14/16 06:00 RDW 13.2 % (11.5-14.5) 12/14/16 06:00 Plt Count 157 K/uL (130-400) 12/14/16 06:00 MPV 10.0 fl (7.2-11.7) 12/12/16 17:50 Neut % (Auto) 53.0 % (50.0-75.0) 12/12/16 17:50 Lymph % (Auto) 32.9 % (20.0-40.0) 12/12/16 17:50 [place] % (Auto) 6.9 % (0.0-10.0) 12/12/16 17:50 Eos % (Auto) 6.5 % (0.0-4.0) H 12/12/16 17:50 Baso % (Auto) 0.7 % (0.0-2.0) 12/12/16 17:50 Neut # 4.0 K/uL (1.8-7.0) 12/12/16 17:50 Lymph # 2.4 K/uL (1.0-4.3) 12/12/16 17:50 [place] # 0.5 K/uL (0.0-0.8) 12/12/16 17:50 Eos # 0.5 K/uL (0.0-0.7) 12/12/16 17:50 Baso # 0.0 K/uL (0.0-0.2) 12/12/16 17:50 PT 23.1 SECONDS (9.6-11.2) H 12/15/16 05:40 INR 2.22 (0.92-1.08) H 12/15/16 05:40 APTT 32.4 SECONDS (23.3-32.5) 12/14/16 06:00 Sodium 142 mmol/l (132-148) 12/13/16 06:00 Potassium 4.8 MMOL/L (3.6-5.0) 12/13/16 06:00 Chloride 106 mmol/L (98-107) 12/13/16 06:00 Carbon Dioxide 28 mmol/L (22-30) 12/13/16 06:00 Anion Gap 13 (10-20) 12/13/16 06:00 BUN 17 mg/dl (9-20) 12/13/16 06:00 Creatinine 0.9 mg/dL (0.8-1.5) 12/13/16 06:00 Est GFR ( Amer) > 60 12/13/16 06:00 Est GFR (Non-Af Amer) > 60 12/13/16 06:00 POC Glucose (mg/dL) 107 mg/dL (65-110) 12/12/16 17:23 Random Glucose 103 mg/dL (75-110) 12/13/16 06:00 Calcium 8.8 mg/dL (8.4-10.2) 12/13/16 06:00 Total Bilirubin 0.8 mg/dl (0.2-1.3) 12/13/16 06:00 AST 49 U/L (17-59) 12/13/16 06:00 ALT 48 U/L (21-72) 12/13/16 06:00 Alkaline Phosphatase 68 U/L (38-126) 12/13/16 06:00 Troponin I 0.0160 ng/mL (0.00-0.120) 12/12/16 17:50 Total Protein 7.0 G/DL (6.3-8.2) 12/13/16 06:00 Albumin 3.8 g/dL (3.5-5.0) 12/13/16 06:00 Globulin 3.2 gm/dL (2.2-3.9) 12/13/16 06:00 Albumin/Globulin Ratio 1.2 (1.0-2.1) 12/13/16 06:00 Triglycerides 240 mg/DL (0-149) H D 12/12/16 17:50 Cholesterol 109 mg/dL (0-199) 12/12/16 17:50 LDL Cholesterol Direct 43 mg/dL (0-129) 12/12/16 17:50 HDL Cholesterol 35 MG/DL (30-70) 12/12/16 17:50 Blood Type O POSITIVE 12/12/16 17:50 Antibody Screen Negative 12/12/16 17:50 BBK History Checked Patient has bt 12/12/16 17:50 - Hospital Course Hospital Course: 56 y/o M with PMHx of CHF, A.fib, Policytemia, CVA and ACID presented to ED because of dizziness. CT head in ED showed no acute changes and patient was consulted with Neurology and cardiology, MRI of the head unable to perform due to patient's ACID and CT angio and repeat CT head were recommended. Patient symptoms resolved while he was in the telemetry unit and today reports for previous studies are unremarkable. After reviewing labs and studies patient PE, and discussion with specialist involved in the care of the patient is decided to DC patient home and f/u as outpatient with the diagnosed of TIA, pending final bubble Echo results. Discharge meds: Famotidine [Famotidine] 20 mg PO DAILY Warfarin [Coumadin] 2.5 mg PO DAILY Furosemide [Furosemide] 20 mg PO DAILY Aspirin [Aspirin Chewable] 81 mg PO DAILY Carvedilol [Coreg] 12.5 mg PO BID Lisinopril [Zestril] 10 mg PO DAILY Digoxin [Lanoxin] 0.125 mg PO Discharge Exam - Head Exam Head Exam: ATRAUMATIC, NORMAL INSPECTION - Eye Exam Eye Exam: PERRL - ENT Exam ENT Exam: Mucous Membranes Moist - Respiratory Exam Respiratory Exam: Clear to PA & Lateral, NORMAL BREATHING PATTERN, UNREMARKABLE - Cardiovascular Exam Cardiovascular Exam: REGULAR RHYTHM. absent: Gallop, Systolic Murmur - GI/Abdominal Exam GI & Abdominal Exam: Normal Bowel Sounds, Unremarkable. absent: Distended - Extremities Exam Extremities exam: full ROM - Neurological Exam Neurological exam: Alert, Oriented x3 - Psychiatric Exam Psychiatric exam: Normal Affect, Normal Mood - Skin Skin Exam: Normal Color, Warm Discharge Plan - Follow Up Plan Condition: GOOD Disposition: HOME/ ROUTINE Instructions: Stroke (DC) Additional Instructions: F/U with PMD Dr Tse at [facility] on January 12, 10:20am F/U with Design Agent, Dr Romano on December 23, 2016 11:15 am F/U with Neurology, Dr Morales within 1 week. Please call for appt [phone]
[2016-12-15 15:32] VITALS: BP 110/73; RESP 20; TEMP 98.1; O2SAT 99
--- NOTE | 2016-12-15 16:20 | CARD ---
APPROVED REPORT EXAM: Two-dimensional and M-mode echocardiogram with Doppler and color Doppler. Other Information Quality : GoodRhythm : Pacemaker INDICATION CVA/TIA Thrombus Echo Enhancing Agent Indication: Rule out thrombus,ASD,PFO Agent/Amount Used: Agitated Saline Surgery/Intervention ICD/Pacemaker: 2D DIMENSIONS IVSd1.47 (0.7-1.1cm)LVDd6.36 (3.9-5.9cm) LVOT Diameter2.17 (1.8-2.4cm)PWd1.05 (0.7-1.1cm) IVSs1.23 (0.8-1.2cm)LVDs6.33 (2.5-4.0cm) FS (%) 0.4 %PWs1.07 (0.8-1.2cm) LVEF (%)25.0 (>50%) M-Mode DIMENSIONS Left Atrium (MM)5.69 (2.5-4.0cm)IVSd0.93 (0.7-1.1cm) Aortic Root3.04 (2.2-3.7cm)LVDd7.15 (4.0-5.6cm) Aortic Cusp Exc.2.05 (1.5-2.0cm)PWd0.96 (0.7-1.1cm) IVSs1.46 cmFS (%) 21 % LVDs5.63 (2.0-3.8cm)PWs1.29 cm Mitral Valve E/A ratio0.0 TDI E/Lateral E'0.0E/Medial E'0.0 Pulmonary Valve PV Peak Dvlrzdhe49.6cm/s LEFT VENTRICLE The Left Ventricle is moderately dilated. There is borderline concentric left ventricular hypertrophy. The systolic function is severely impaired. There is global hypokinesis of the left ventricle. Patient is in A Fib No left ventricle thrombus noted on this study. RIGHT VENTRICLE The right ventricle is normal size. There is normal right ventricular wall thickness. The right ventricular systolic function is normal. There is a pacemaker lead in the right ventricle. ATRIA The left atrium is moderately dilated. The right atrium is mildly dilated. The interatrial septum is intact with no evidence for an atrial septal defect. AORTIC VALVE The aortic valve is mildly thickened. No aortic regurgitation is present. There is no aortic valvular stenosis. MITRAL VALVE The mitral valve is moderately thickened. There is no mitral valve stenosis. There is no mitral valve regurgitation noted. TRICUSPID VALVE The tricuspid valve is normal in structure and function. There is no tricuspid valve regurgitation noted. PULMONIC VALVE The pulmonary valve is normal in structure and function. There is no pulmonic valvular regurgitation. GREAT VESSELS The aortic root displays moderate sclerocalcific changes of the aortic The IVC was not visualized. PERICARDIAL EFFUSION The pericardium appears normal. <Conclusion> The Left Ventricle is moderately dilated. There is borderline concentric left ventricular hypertrophy. The systolic function is severely impaired. There is global hypokinesis of the left ventricle. No left ventricle thrombus noted on this study.
== END 2016-12-15 16:15 | disposition home or self-care (01) | DRG 532 ==
LOC: H.ER 17:14 → H.ERHOLD 18:09 → H.TEL 20:48
PROVIDERS: ADMIT Family Medicine Geriatric Medicine; ATTEND Family Medicine Geriatric Medicine
DX: G45.8 Other transient cerebral ischemic attacks and related syndromes (principal); I50.22 Chronic systolic (congestive) heart failure; I42.0 Dilated cardiomyopathy; I11.0 Hypertensive heart disease with heart failure; D68.9 Coagulation defect, unspecified; I48.2 Chronic atrial fibrillation; D45 Polycythemia vera; H53.2 Diplopia; Z95.810 Presence of automatic (implantable) cardiac defibrillator; Z79.01 Long term (current) use of anticoagulants; Z86.73 Personal history of transient ischemic attack (TIA), and cerebral infarction without residual deficits

== ENCOUNTER 2017-02-07 09:05 | Emergency (ER) | payer MEDICAID ==
[2017-02-07 09:06] VITALS: PULSE 71
[2017-02-07 09:10] VITALS: BMI 30.9
[2017-02-07 09:11] VITALS: BP 111/63; PULSE 70; RESP 18; TEMP 97.1; O2SAT 99
--- NOTE | 2017-02-07 09:47 | ED PDOC ---
HPI: Abdomen Time Seen by Provider: 02/07/17 09:27 Chief Complaint (Nursing): GI Problem Chief Complaint (Provider): Constipation History Per: Patient History/Exam Limitations: no limitations Onset/Duration Of Symptoms: Days (x2 days) Outside of [place] travel?: No Current Symptoms Are (Timing): Still Present Associated Symptoms: denies: Vomiting Additional Complaint(s): Eb Dang, a 56 year old male, presents to the ED complaining of constipation x2 days. The patient reports that his symptoms are similar to ones he had last year but without the abdominal pain.The patient states that during his visit to the ED last year he was given enema to help him to release waste freely. He states that he did not think to take enema at home.He further states that in the shower he tried to remove stool with his finger but could not get anything out. PMD: Dr. Kaden Tse Past Medical History Reviewed: Historical Data, Nursing Documentation, Vital Signs Vital Signs: Last Vital Signs Temp 97.1 F L 02/07/17 09:11 Pulse 70 02/07/17 09:11 Resp 18 02/07/17 09:11 BP 111/63 02/07/17 09:11 Pulse Ox 99 02/07/17 10:15 - Medical History PMH: Atrial Fibrillation, Cardia Arrhythmia, CHF, HTN Denies: Chronic Kidney Disease - Surgical History Surgical History: Cholecystectomy Denies: Pacemaker - Family History Family History: States: Unknown Family Hx - Living Arrangements Living Arrangements: Alone - Home Medications Home Medications: Ambulatory Orders Medication Instructions Recorded Famotidine 20 mg PO DAILY 10/25/13 Warfarin [Coumadin] 2.5 mg PO DAILY 03/13/14 Furosemide 20 mg PO DAILY 08/02/14 Aspirin [Aspirin Chewable] 81 mg PO DAILY 09/03/16 Carvedilol [Coreg] 12.5 mg PO BID 09/03/16 Lisinopril [Zestril] 10 mg PO DAILY 09/03/16 Digoxin [Lanoxin] 0.125 mcg PO DAILY 10/27/16 Atorvastatin [Lipitor] 10 mg PO DAILY 12/12/16 - Allergies Allergies/Adverse Reactions: Allergies Allergy/AdvReac Type Severity Reaction Status Date / Time No Known Allergies Allergy Verified 02/07/17 09:19 Review of Systems Gastrointestinal: Positive for: Constipation. Negative for: Vomiting, Abdominal Pain Physical Exam - Reviewed Nursing Documentation Reviewed: Yes Vital Signs Reviewed: Yes - Physical Exam Appears: Positive for: Non-toxic, No Acute Distress Head Exam: Positive for: ATRAUMATIC, NORMAL INSPECTION, NORMOCEPHALIC Cardiovascular/Chest: Positive for: Regular Rate, Rhythm, Chest Non Tender. Negative for: Tachycardia Respiratory: Positive for: Normal Breath Sounds. Negative for: Wheezing, Respiratory Distress Gastrointestinal/Abdominal: Positive for: Normal Exam, Bowel Sounds, Soft. Negative for: Tenderness, Guarding, Rebound Rectal: Positive for: Normal Exam, Rectal Tone Is: (Normal tone), Other (No bolus felt; Brown stools.). Negative for: Black Stool, Hemorrhoids Neurologic/Psych: Positive for: Alert, Oriented, Gait - ECG O2 Sat by Pulse Oximetry: 99 (RA) Pulse Ox Interpretation: Normal - Radiology X-Ray: Viewed By Ct X-Ray Interpretation: No Acute Disease Medical Decision Making Medical Decision Makin Initial Impression: 56 year old male presenting with constipation Initial Impression: * patient spontaneously evacuated large amount of stool (subjectively). will cancel enema and discharge. Disposition - Clinical Impression Clinical Impression: Bowel movement symptom - Patient ED Disposition Is Patient to be Admitted: No Doctor Will See Patient In The: Office Counseled Patient/Family Regarding: Diagnosis, Need For Followup - Disposition Referrals: Kaden Tse MD [Family Provider] - Disposition: Routine/Home Disposition Time: 10:35 Condition: IMPROVED Instructions: High Fiber Diet (ED) - POA Present On Arrival: None
--- NOTE | 2017-02-07 16:28 | RAD ---
PROCEDURE: Radiographs of the chest and abdomen (obstructive series) HISTORY: abdominal pain COMPARISON: Comparison made with prior study dated 12/12/2016 TECHNIQUE: AP radiograph of the chest, with upright and supine radiographs of the abdomen. FINDINGS: CHEST: No infiltrate or effusion. No evidence of pneumothorax. Heart size is borderline/mildly enlarged. No change bipolar pacemaker/defibrillator ABDOMEN AND PELVIS: No gross free intraperitoneal air seen under the diaphragmatic surfaces. No evidence of acute mechanical bowel obstruction. Moderate amount stool seen throughout colon suggesting mild fecal retention/constipation. Radiopaque suture material or clips right upper quadrant of the attic consistent with prior cholecystectomy. Small calcific densities overlying the inferior true pelvis may represent prostatic calcifications. Mild multilevel degenerative spondylosis of the lumbar spine Metallic IMPRESSION: No acute cardiopulmonary disease. Findings suggest mild fecal retention/constipation.
== END 2017-02-07 10:40 | disposition home or self-care (01) ==
LOC: H.ER 09:05
DX: K59.00 Constipation, unspecified (principal); I11.0 Hypertensive heart disease with heart failure; I48.91 Unspecified atrial fibrillation; Z79.01 Long term (current) use of anticoagulants; Z79.82 Long term (current) use of aspirin

== ENCOUNTER 2017-10-29 06:01 | Emergency (ER) | payer MEDICARE, MEDICAID ==
[2017-10-29 06:02] VITALS: PULSE 71
--- NOTE | 2017-10-29 06:19 | ED PDOC ---
HPI: SOB/CHF/COPD Time Seen by Provider: 10/29/17 06:03 Chief Complaint (Nursing): Shortness Of Breath History Per: Patient Onset/Duration Of Symptoms: Days (2) Exacerbating Factor(s): Exertion Current Respiratory Medications: See Home Med List Severity: Moderate Pain Scale Rating Of: 0 Associated Symptoms: denies: Heart Racing, Ankle/Leg Swelling, Dizziness Additional Complaint(s): Generalized fatigue and weakness assoc with SOB x 2 days. Denies chest pain or palpitations. Denies swelling of ankles. Denies cough or fever. Past Medical History Vital Signs: Last Vital Signs Temp 98.9 F 10/29/17 06:11 Pulse 73 10/29/17 07:37 Resp 16 10/29/17 07:37 BP 125/71 10/29/17 07:32 Pulse Ox 97 10/29/17 07:37 - Medical History PMH: Atrial Fibrillation, Cardia Arrhythmia, CHF, HTN Denies: Chronic Kidney Disease - Surgical History Surgical History: Cholecystectomy, Pacemaker - Family History Family History: States: Unknown Family Hx - Home Medications Home Medications: Ambulatory Orders Medication Instructions Recorded Famotidine 20 mg PO DAILY 10/25/13 Warfarin [Coumadin] 2.5 mg PO DAILY 03/13/14 Furosemide 20 mg PO DAILY 08/02/14 Aspirin [Aspirin Chewable] 81 mg PO DAILY 09/03/16 Carvedilol [Coreg] 12.5 mg PO BID 09/03/16 Lisinopril [Zestril] 10 mg PO DAILY 09/03/16 Digoxin 0.125 mcg PO DAILY 10/27/16 Atorvastatin [Lipitor] 10 mg PO DAILY 12/12/16 - Allergies Allergies/Adverse Reactions: Allergies Allergy/AdvReac Type Severity Reaction Status Date / Time No Known Allergies Allergy Verified 10/29/17 06:11 Review of Systems ROS Statement: Except As Marked, All Systems Reviewed And Found Negative Constitutional: Negative for: Fever Cardiovascular: Negative for: Chest Pain, Palpitations Respiratory: Positive for: Shortness of Breath Physical Exam - Reviewed Nursing Documentation Reviewed: Yes Vital Signs Reviewed: Yes - Physical Exam Appears: Positive for: Non-toxic, No Acute Distress Head Exam: Positive for: ATRAUMATIC, NORMAL INSPECTION, NORMOCEPHALIC Skin: Positive for: Normal Color, Warm, DRY Eye Exam: Positive for: EOMI, Normal appearance, PERRL ENT: Positive for: Normal ENT Inspection Neck: Positive for: Normal, Painless ROM Cardiovascular/Chest: Positive for: Regular Rate, Rhythm Respiratory: Positive for: CNT, Normal Breath Sounds Gastrointestinal/Abdominal: Positive for: Normal Exam, Bowel Sounds, Soft Back: Positive for: Normal Inspection Extremity: Positive for: Normal ROM. Negative for: Pedal Edema Neurologic/Psych: Positive for: Alert, Oriented - Laboratory Results Result Diagrams: 10/29/17 06:43 10/29/17 06:43 - ECG O2 Sat by Pulse Oximetry: 98 Medical Decision Making Medical Decision Making: Discussed with Dr. Delgadillo, pt to be diuresed and he will f/u as outpt. Disposition - Clinical Impression Clinical Impression: Congestive heart failure (CHF) - Patient ED Disposition Is Patient to be Admitted: No - Disposition Disposition: Routine/Home Disposition Time: 08:43 Condition: FAIR Instructions: Heart Failure, Adult Forms: [facility] ([place])
[2017-10-29 06:59] LABS: BASO % 0.3 % (0.0-2.0); EOS # 0.1 K/uL (0.0-0.7); EOS % 0.3 % (0.0-4.0); HEMOGLOBIN 17.2 g/dL (12.0-18.0); LYMPH # 1.1 K/uL (1.0-4.3); LYMPH % 7.1 % (20.0-40.0); MEAN CELL VOLUME 91.6 fl (80.0-94.0); MEAN CORPUSCULAR HEMOGLOBIN 31.5 pg (27.0-31.0); MEAN CORPUSCULAR HGB CONC 34.4 g/dL (33.0-37.0); MEAN PLATELET VOLUME 10.4 fl (7.2-11.7); MONO # 0.8 K/uL (0.0-0.8); MONO % 5.4 % (0.0-10.0); NEUT # 13.3 K/uL (1.8-7.0); NEUT % 86.9 % (50.0-75.0); PLATELET COUNT 153 K/uL (130-400); RBC 5.47 Mil/uL (4.40-5.90); RED CELL DISTRIBUTION WIDTH 13.7 % (11.5-14.5); WHITE BLOOD COUNT 15.3 K/uL (4.8-10.8)
[2017-10-29 07:01] LABS: ALB/GLOB RATIO 1.1 (1.0-2.1); ALBUMIN 3.9 g/dL (3.5-5.0); ALT/SGPT 45 U/L (21-72); AST/SGOT 29 U/L (17-59); BLOOD UREA NITROGEN 15 mg/dl (9-20); CALCIUM 8.8 mg/dL (8.4-10.2); GFR AFRICAN-AMERICAN > 60; GFR NON-AFRICAN AMERICAN > 60
[2017-10-29 07:12] LABS: B-TYPE NATRIURETIC PEPTIDE 2450 pg/ml (0-900)
[2017-10-29 07:20] LABS: INR 2.2 (0.9-1.2); PROTHROMBIN TIME 24.2 Seconds (9.8-13.1)
--- NOTE | 2017-10-29 08:51 | RAD ---
HISTORY: SOB COMPARISON: 12/12/2016 TECHNIQUE: Chest PA and lateral FINDINGS: LUNGS: No active pulmonary disease. PLEURA: No significant pleural effusion identified. No pneumothorax apparent. CARDIOVASCULAR: AICD. No congestive change. Normal heart size. OSSEOUS STRUCTURES: No significant abnormalities. VISUALIZED UPPER ABDOMEN: Normal. OTHER FINDINGS: None. IMPRESSION: No active disease.
[2017-10-29 12:20] VITALS: BP 134/71; PULSE 77; RESP 16; TEMP 98.9; O2SAT 98; BMI 31.4
[2017-10-29 13:36] LABS: BANDS 1 % (0-2); LYMPHOCYTE 12 % (20-50); MONOCYTE 7 % (0-10); NEUTROPHIL 80 % (42-75); PLATELET ESTIMATE NORMAL (NORMAL); TOTAL CELLS COUNTED 100
--- NOTE | 2017-10-29 18:30 | CARD ---
APPROVED REPORT EKG Measurement Heart [id number] <Conclusion> Ventricular-paced rhythm with frequent premature ventricular complexes Underlying rhythm is A Fib Abnormal ECG
== END 2017-10-29 10:44 | disposition home or self-care (01) ==
LOC: H.ER 06:01
DX: I50.9 Heart failure, unspecified (principal); I11.0 Hypertensive heart disease with heart failure; Z79.01 Long term (current) use of anticoagulants; Z95.0 Presence of cardiac pacemaker; Z79.82 Long term (current) use of aspirin
CPT/HCPCS: 71046; 80053; 80162; 83880; 84484; 85025; 85610; 93005; 96374; 99285; J1940